=== PATIENT | female | born 1955 | race Caucasian/White ===

== ENCOUNTER → 2018-01-09 | Outpatient (CLI) | payer OTHER ==
[~2018-01-09] MED LIST: ALLEGRA ALLERG180 MG PO; ASPIR 8181 MG PO; BONIVA150 MG PO; CALCIUM CITRAT1 EA14 PO; CRESTOR10 MG PO; FISH OIL 1,001000 M2 PO; GLUCOSAMINE H1500 MG PO; KEPPRA1000 MG PO; MAGOX 400400 MG PO; OMEPRAZOLE40 MG PO; ONE-A-DAY WOMENS PO; PROTONIX40 M2 PO; SANCTURA PO; SUPHEDRINE PE10 MG PO; VITAMINC500 PO; ZANTAC 150MG T150 MG PO; [UNRECOGNIZED DRUG - OTHER] PO
== END ==
LOC: M.RAD 11:00
DX: M25.571 Pain in right ankle and joints of right foot (principal); Z88.8 Allergy status to other drugs, medicaments and biological substances

== ENCOUNTER 2018-06-24 02:27 | Inpatient (IN) | payer OTHER ==
[~2018-06-24] VITALS: Ht 170.2 cm; Wt 87.5 kg
--- NOTE | ~2018-06-24 | PROC ---
[address] [address] PROCEDURE REPORT Name: YAW ENGLAND Room: [address] IN M.R.#: [id number] Admission: 06/24/18 Attend Phys: Desmond Vasquez Discharge: Date of : 59 Report #: [id number] THIS REPORT FOR: //name// For GI report, Please see the Provation report in Perceptive 7 content. By: [id number] Records Staff KAREN /EUGENE
--- NOTE | ~2018-06-24 | CON ---
[address] [address] CONSULTATION Name: YAW ENGLAND Room: [address] IN M.R.#: [id number] Admission: 06/24/18 Attend Phys: Desmond Vasquez Discharge: Date of : 59 Report #: [id number] THIS REPORT FOR: //name// CC: Agustín Parada MD DATE OF SERVICE: 06/24/2018 REQUESTING PHYSICIAN: Andres Parada M.D. REASON FOR CONSULTATION: Nausea, vomiting and diarrhea. HISTORY OF PRESENT ILLNESS: This is a 63-year-old female with history of meningioma, who has had surgical removal of the same back in 2008. She reports that last night she started having loose stool and she woke up nauseous and vomited. As she was trying to clean up her vomitus in the bathroom, she may have passed out as she remembers that her was trying to wake her up. She currently denies any nausea and vomiting and reports that her last bowel movement was yesterday. Since admission, she had a CT of abdomen and pelvis, which showed mild ileus. She also had a CT of the head, which showed no acute process. The patient has gastroesophageal reflux symptoms for which she takes pantoprazole. Her last upper endoscopy was a couple years ago when they told her that she has a small hiatal hernia. She also had a colonoscopy in 2017, which was normal. PAST MEDICAL HISTORY: Significant for history of meningioma, status post surgical removal in 2008. She also has gastroesophageal reflux disease and take Keppra for seizure prevention. Hyperlipidemia, osteopenia, history of tonsillectomy, appendectomy and cystocele repair. ALLERGIES: No known drug allergy. MEDICATIONS: Please refer to hospital MAR. SOCIAL HISTORY: The patient is and lives at home. Denies tobacco or alcohol use. FAMILY HISTORY: Negative for GI malignancy. PHYSICAL EXAMINATION: VITAL SIGNS: Reveals blood pressure of 108/66, respiration 18, pulse 79 and temperature 98.6. LUNGS: [place] [address] CONSULTATION Name: YAW ENGLAND Room: [address] IN [facility]#: [id number] Admission: 06/24/18 Attend Phys: Desmond Vasquez Discharge: Date of : 59 Report #: [id number] CARDIOVASCULAR: Regular. ABDOMEN: Soft, nontender and nondistended. Bowel sounds are positive. LABORATORY DATA: Labs reveal sodium of 139, potassium 3.7, BUN is 15, creatinine 1.0 and glucose is 154. Alk phos 89, ALT 29 and AST 22. INR 1.0. WBC is 13.1 and hemoglobin is 13.3 with platelet of 334. IMAGING DATA: As discussed above. ASSESSMENT AND PLAN: The patient with symptoms of nausea, vomiting and diarrhea, which are all self limited. The CT shows mild ileus and WBC is elevated to 13,000. She most probably has gastroenteritis, which is resolving. She reports that she is on pantoprazole and continues to have occasional reflux symptoms. We will perform upper endoscopy tomorrow to assure that there is nothing else is going on in her upper gastrointestinal. Meanwhile, I will allow her to advance her diet as tolerated. By: 1154 [id number] Mendez MD /nt
--- NOTE | ~2018-06-24 | CON ---
[address] [address] CONSULTATION Name: YAW ENGLAND Room: [address] IN .R.#: [id number] Admission: 06/24/18 Attend Phys: Desmond Vasquez Discharge: Date of : 59 Report #: [id number] THIS REPORT FOR: //name// CC: Agustín Parada DATE OF SERVICE: 06/24/2018 HISTORY OF PRESENT ILLNESS: The patient is a 63-year-old white female who I was asked to see in the hospital today after she had a syncopal spell. The patient has a long history of syncope. She has had multiple workups in the past. I actually implanted a LINQ implantable coating mixer supervisor 2 years ago. I actually just saw her in the office about a month ago and interrogated the monitoring device and no significant arrhythmias were detected. The patient states she was doing well until last night. She got up during the night, vomited and had a loose stool. She has had a syncopal spell. An ambulance brought her to the hospital. She is admitted for further evaluation and treatment. She denied any recent fever. She has had no recent chest pain, palpitations or shortness of breath. She does not exercise on a regular basis. She has had no bleeding problems. PAST MEDICAL HISTORY: She had previous removal of meningioma at and she had postoperative seizures and has been on Keppra. She has had a tonsillectomy. She has a history of hyperlipidemia and was on Crestor in the past, but developed muscle aches. There is no history of hypertension or diabetes. MEDICATIONS: Her only medication at home includes Protonix and Keppra. ALLERGIES: She has no known drug allergies. FAMILY HISTORY: Negative for heart disease. SOCIAL HISTORY: She is . She and her live in [place]. 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 No smoking or alcohol abuse. REVIEW OF SYSTEMS: She has had no history of stroke, asthma, peptic ulcer disease, liver disease, kidney disease, psychiatric illness or chronic skin condition. PHYSICAL EXAMINATION: GENERAL: Revealed a middle-aged female lying in bed. She appeared in no distress. VITAL SIGNS: She had a blood pressure of 130/70, pulse is 80 and she is afebrile. HEENT: She was anicteric and conjunctiva pink. [place] [address] CONSULTATION Name: YAW ENGLAND Room: [address]#: [id number] Admission: 06/24/18 Attend Phys: Desmond Vasquez Discharge: Date of : 59 Report #: [id number] NECK: Veins are not distended. No carotid bruits. Neck is supple. CHEST: Clear to auscultation. CARDIAC: Regular rate and rhythm. ABDOMEN: Soft. EXTREMITIES: Had no edema. Dorsalis pedis pulse 2+ bilaterally. SKIN: Warm and dry. NEUROLOGIC: Nonfocal. LYMPH: No adenopathy. MUSCULOSKELETAL: No joint effusion. LABORATORY DATA: ECG showed a normal sinus rhythm. Her workup in the Emergency Room yesterday, she had a CT scan of the head without contrast that showed no acute abnormality. CT scan of the abdomen and pelvis because of her vomiting and diarrhea showed a mild ileus. Her chest x-ray, normal heart size and clear lung greenberg. She had lab work, sodium 139 and creatinine 1.0. Liver function studies were normal. Troponin is 0.06. BNP 45. White blood cell count 13.1 and hemoglobin 13.3. IMPRESSION AND RECOMMENDATIONS: 1. Syncope. Suspect vasovagal. Recommend no further cardiac workup. 2. History of hyperlipidemia. The patient cannot tolerate statin drugs. 3. Previous removal of meningioma. 4. Previous seizure. The patient is on Keppra. By: 1214 [id number] Chavira MD, FACC /nt
[~2018-06-24 02:27] MED LIST changes: -PROTONIX40 M2 PO
[2018-06-24 02:33] VITALS: BP 118/77
[2018-06-24 02:50] LABS: ABSOLUTE EOSINOPHILS 0.2 thou/uL (0.0-0.7); ABSOLUTE LYMPHOCYTES 1.4 thou/uL (0.8-5.3); ABSOLUTE MONOCYTES 0.8 thou/uL (0.0-1.2); ABSOLUTE NEUTROPHILS 10.7 thou/uL (1.6-8.1); BASOPHILS 0.4 %; EOSINOPHILS 1.8 %; HEMATOCRIT 39.9 % (37.0-47.0); HEMOGLOBIN 13.3 gm/dL (12.0-15.0); LYMPHOCYTES 10.7 %; MCH 29.2 pg (26.0-34.0); MCHC 33.3 g/dL (28.0-37.0); MCV 87.5 fL (80.0-100.0); MPV 7.6 fl. (7.2-11.1); NUCLEATED RBCS 0 /100WBC; PLATELET COUNT* 334 thou/uL (150-400); POLYS 81.1 %; RBC 4.56 mil/uL (4.20-5.00); RDW-CV 13.4 % (10.5-14.5); WBC 13.1 thou/uL (4.0-11.0)
[2018-06-24 02:56] LABS: ANION GAP 9 mmol/L (7-16); BUN 15 mg/dL (7-18); CALCIUM 9.1 mg/dL (8.5-10.1); CHLORIDE 99 mmol/L (98-107); CO2 31 mmol/L (21-32); GLUCOSE 154 mg/dL (70-99); POTASSIUM 3.7 mmol/L (3.5-5.1); SODIUM 139 mmol/L (136-145)
[2018-06-24 03:04] LABS: APTT 26.1 Seconds (25.0-31.3); PROTIME 10.7 Seconds (9.20-11.50)
[2018-06-24 03:06] LABS: ALBUMIN 3.5 g/dL (3.4-5.0); ALKALINE PHOSPHATASE 89 U/L (46-116); LIPASE 186 U/L (73-393); NT-PRO BRAIN NAT PEPTIDE 45 pg/mL (<300); SGOT 22 U/L (15-37); SGPT 29 U/L (30-65); TOTAL BILIRUBIN 0.3 mg/dL (<0.1-1.0); TOTAL PROTEIN 7.5 g/dL (6.4-8.2); TROPONIN-I LEVEL <0.06 ng/mL (<0.06)
[2018-06-24] MEDS ORDERED: PROTONIX40 M2 PO (03:06)
[2018-06-24 03:37] LABS: URINE BILIRUBIN NEGATIVE (Negative); URINE BLOOD NEGATIVE (Negative); URINE CLARITY CLEAR; URINE COLOR YELLOW; URINE GLUCOSE-RANDOM NEGATIVE (Negative); URINE KETONES NEGATIVE (Negative); URINE LEUKOCYTES-REFLEX 1+ (Negative); URINE NITRITE-REFLEX NEGATIVE (Negative); URINE PROTEIN NEGATIVE (Negative); URINE UROBILINOGEN 0.2 E.U./dl (0.2-1.0)
[2018-06-24 03:45] LABS: SQUAMOUS 0-3 Few /LPF (0-3); URINE WBC-REFLEX >25 Many /HPF (0-5); WBC CLUMPS Few (None Seen)
[2018-06-24 03:46] LABS: BACTERIA-REFLEX >30 Many /HPF (None Seen); CRYSTALS None Seen /LPF (None Seen); FINE GRANULAR CASTS 0-3 Few /LPF (None Seen); HYALINE CASTS 0-3 Few /LPF (None Seen); MUCUS 4-6 Moderate strn/LPF (None Seen); URINE RBC 3-10 Few /HPF (0-2)
[2018-06-24 05:25] VITALS: BP 113/68
[2018-06-24 08:30] VITALS: BP 108/66
[2018-06-24 11:58] VITALS: BP 137/76
--- NOTE | 2018-06-24 14:25 | EKG ---
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
[2018-06-24 15:53] VITALS: BP 136/80
[2018-06-24 20:00] VITALS: BP 105/68
[2018-06-25] VITALS (8 sets, daily range): BP systolic 114–150; BP diastolic 64–88
[2018-06-26] VITALS: BP 108/67
[2018-06-26 03:50] VITALS: BP 127/77
[2018-06-26 12:49] VITALS: BP 150/88
--- NOTE | 2018-06-26 16:07 | PATH ---
[address] [address] PATHOLOGY RPT PROCEDURE Name: ROSY ENGLAND Room: [address] IN M.R.#: [id number] Admission: 06/24/18 Date of : 59 Discharge: 06/26/18 Report #: [id number] Path Case #: [id number] [facility] Accession Number: [id number] . 01 Material submitted: . MILD GASTRITIS ANTRAL BIOPSIES . 01 Clinical history: . Mild gastritis . 02 Diagnosis: Mild gastris antral biopsies: - Mild chronic antral gastritis suggesting reactive gastropathy (chemical gastritis), negative for Helicobacter pylori organisms and dysplasia. (ELINA:pit 06/26/2018) . Special stain: H. pylori immuno. QTP/06/26/2018 . 02 Electronically signed: . Raj Reyez MD, Pathologist NPI- [id number] . 01 Gross description: . The specimen is received in formalin, labeled "Jess, Rosy, mild gastritis antral biopsies", is an irregular fragment of mora soft tissue 0.7 cm in greatest dimension, entirely submitted in A1. (SWS; 06/25/2018) SHS/SHS . 02 Pathologist provided ICD-10: K29.50 . 02 CPT . 529969, B68098 Specimen Comment: A courtesy copy of this report has been sent to Specimen Comment: [phone], , . Specimen Comment: Report sent to ,DR ZAMARRIPA / DR FERRELL Performed at: [address], [place] [id number] MD Aleksandar Benedict MD Phone: [phone] Performed at: 02 [facility] [address], [place], [place] [id number] MD Raj Reyez MD Phone: [phone]
--- NOTE | 2018-06-30 15:44 | EEG ---
[address] [address] EEG STUDY REPORT Name: YAW ENGLAND Room: [address] IN M.R.#: [id number] Admission: 06/24/18 Attend Phys: Desmond Vasquez Discharge: 06/26/18 Date of : 59 Report #: [id number] THIS REPORT FOR: //name// CC: Agustín Parada DATE OF SERVICE: 06/24/2018 This patient is being evaluated for syncope. EEG is being done to evaluate seizure as the etiology of syncope. The patient's EEG was done by placing the electrode by standard 10-20 system of electrode placement. Both referential and sequential montages were used for recording. Background activity in this patient's EEG goes up to about 9 Hz and 30 microvolt. The patient repeatedly goes to sleep and that is associated with bilaterally symmetrical sleep spindle, vertex sharp waves. Photic stimulation is unremarkable. No well-defined spike and slow wave activity was noticed during this record. IMPRESSION: This patient's EEG does not demonstrate any clear-cut epileptiform activity. Clinical correlation is recommended. <ELECTRONICALLY SIGNED> By: Washington Thurman MD 06/30/18 1544 1710 1805Parchace Thurman MD /nt
--- NOTE | 2018-06-30 15:44 | CON ---
[address] [address] CONSULTATION Name: YAW ENGLAND Room: [address] IN M.R.#: [id number] Admission: 06/24/18 Attend Phys: Desmond Vasquez Discharge: 06/26/18 Date of : 59 Report #: [id number] THIS REPORT FOR: //name// CC: Agustín Parada DATE OF SERVICE: 06/24/2018 HISTORY OF PRESENT ILLNESS: This is a 63-year-old female patient who was evaluated by me for any neurological etiology for the patient's passing out spell. This patient has a pretty complicated history. She indicated that several years ago, she was passing out and was having shaking spells. As an evaluation, she underwent imaging study of the brain and was found to have a meningioma. They were concerned that she might have trouble with optic nerve compression and they removed the meningioma. She lost her smell, but did not have any further neurological deficit. For seizure management, she was initially on Dilantin, but subsequently she was put on Keppra. She started taking Keppra about 7-8 years ago. About 2-1/2 years ago, she had another spell where she passed out after feeling dizzy and her blood pressure was low at that time. At this time, she was admitted with two episodes where she felt dizzy and passed out. It was precede with diarrhea. She does not remember anything about that. She also had vomiting during this time. She usually does not develop any nausea or vomiting. 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 REVIEW OF SYSTEMS: Indicate she had a meningioma removal. She had seizure after surgery. She has elevated cholesterol, seasonal allergies, cystocele repair. She has been on Keppra 1000 mg b.i.d. without any significant side effects. This was a relevant 14-point review of system. PAST MEDICAL HISTORY: Positive for meningioma removal. FAMILY HISTORY: Negative for early age stroke. SOCIAL HISTORY: She does not smoke. PHYSICAL EXAMINATION: Indicate she is alert, responsive, able to follow simple and complex command. Her speech, concentration, fund of knowledge and memory is unremarkable. Cranial nerve examinations appear unremarkable. Neuromuscular examination is unremarkable except reflexes may be slightly asymmetrical, I am not certain about that. I could not look at the fundus. There is no meningeal sign. She is a well-developed individual who does not have any dysmorphic features of eyes, ears and face. Her vision and hearing looks adequate. Her blood pressure is 137/76, pulse is 79, temperature is 98.2. [place] [address] CONSULTATION Name: YAW ENGLAND TA[place] Room: [address] IN M.R.#: [id number] Admission: 06/24/18 Attend Phys: Desmond Vasquez Discharge: 06/26/18 Date of : 59 Report #: [id number] LABORATORY DATA: Indicate a white count of 13.1. Her magnesium was normal at 2 and calcium was normal. She did have a CT scan of the head, which demonstrated prior surgical changes. 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 IMPRESSION: This patient is predisposed to have seizures because of prior surgery and encephalomalacia in the frontal lobe which is epileptiform area. However, the description of the episode looks more vasovagal or cardiac episodes. She apparently has been worked up for vasovagal spell and in fact has a monitor of the heart and the Cardiology is going to evaluate that. I think cardiac evaluation is indicated in this patient because the episode does not look like seizure, although drop attacks can occur like this. This episode occurred in relation to diarrhea and vomiting and no tonic-clonic activity was noticed and therefore, I think it will be very desirable to look for cardiac cause. RECOMMENDATION: 1. Await cardiac evaluation, especially to see if anything is picked up on the monitor. 2. I will get an EEG done. 3. If EEG is unremarkable, I will not change her anticonvulsant and ask her to contact her neurologist at and see if they want to do further workup like prolonged EEG on her. I did ask her not to drive for the time being and await for cardiac workup as well as her discussion with her neurologist at [facility] and they can decide about the further status and especially if they want to do further workup including prolonged EEG in this patient and that will at least somewhat work, depend upon the patient's cardiac workup. Thank you very much for this referral. <ELECTRONICALLY SIGNED> By: Washington Thurman MD 06/30/18 1544 1237 2033Peugene Thurman MD /nt
== END 2018-06-26 14:13 | disposition home or self-care (01) | DRG 372 ==
LOC: M.ERS 02:27 → M.TBA-ER 04:31 → M.3W 04:31 → M.2W 04:31 → M.ERS 05:25 → M.2W 06:02 → M.3W 06-25 16:30
PROVIDERS: Family Medicine; ADMIT Internal Medicine
PROC: 0DB68ZX Excision of Stomach, Via Natural or Artificial Opening Endoscopic, Diagnostic (ICD-10-PCS; principal; 2018-06-25)
DX: A04.9 Bacterial intestinal infection, unspecified (principal); N39.0 Urinary tract infection, site not specified; R65.10 Systemic inflammatory response syndrome (SIRS) of non-infectious origin without acute organ dysfunction; R55 Syncope and collapse; K29.70 Gastritis, unspecified, without bleeding; K21.9 Gastro-esophageal reflux disease without esophagitis; K44.9 Diaphragmatic hernia without obstruction or gangrene; B96.20 Unspecified Escherichia coli [E. coli] as the cause of diseases classified elsewhere; R56.9 Unspecified convulsions; E78.5 Hyperlipidemia, unspecified; Z79.899 Other long term (current) drug therapy; Z91.048 Other nonmedicinal substance allergy status; Z90.49 Acquired absence of other specified parts of digestive tract; Z28.21 Immunization not carried out because of patient refusal

== ENCOUNTER → 2018-11-26 | Outpatient (CLI) | payer OTHER ==
[~2018-11-26] MED LIST changes: +PROTONIX40 M2 PO
== END ==
LOC: M.RAD 14:30
DX: M85.80 Other specified disorders of bone density and structure, unspecified site (principal); Z78.0 Asymptomatic menopausal state

== ENCOUNTER → 2021-04-23 | Outpatient (CLI) | payer OTHER | LOC: M.CT 08:41 | PROVIDERS: ATTEND Nurse Practitioner | DX: Z13.6 Encounter for screening for cardiovascular disorders (principal); I25.10 Atherosclerotic heart disease of native coronary artery without angina pectoris ==

== ENCOUNTER → 2021-08-25 | Outpatient (CLI) | payer OTHER | LOC: M.RAD 08-24 09:30 | PROVIDERS: ATTEND Internal Medicine | DX: M85.88 Other specified disorders of bone density and structure, other site (principal); M85.80 Other specified disorders of bone density and structure, unspecified site ==